=== PATIENT | male | born 1950 | race Caucasian/White ===

== ENCOUNTER 2024-02-04 12:42 | Emergency (ER) | payer OTHER ==
[2024-02-04 12:56] VITALS: BP 124/81; PULSE 95; RESP 17; TEMP 97.7; BMI 27.6
== END 2024-02-04 15:01 | disposition home or self-care (01) ==
LOC: JER 12:42
DX: R21 Rash and other nonspecific skin eruption (principal); B02.9 Zoster without complications
CPT/HCPCS: 99283-25

== ENCOUNTER 2024-02-18 13:01 | Emergency (ER) | payer OTHER ==
[2024-02-18 13:29] VITALS: BP 159/95; PULSE 95; RESP 18; TEMP 97.5; BMI 23.7
[2024-02-18 14:34] LABS: BASO % 0.3 % (0-2.0); EOS % 0.2 % (0-4.5); HEMATOCRIT 47.5 % (35.4-49); HEMOGLOBIN 16.7 GM/dL (11.7-16.9); LYMPH % 24.5 % (8-40); MCH 32.8 pg (25.7-33.7); MCHC 35.1 g/dl (32.0-35.9); MEAN CELL VOLUME 93.4 fl (80-96); MEAN PLT VOLUME 7.9 fl (7.5-11.1); MONO % 7.3 % (3.8-10.2); NEUT % 67.7 % (42.8-82.8); PLATELET COUNT 252 10^3/uL (134-434); RBC 5.09 M/mm3 (4.00-5.60); RDW 13.6 % (11.9-15.9); WHITE BLOOD COUNT 9.2 K/mm3 (4.0-10.0)
[2024-02-18 14:48] LABS: POTASSIUM 3.8 mmol/L (3.5-5.1)
[2024-02-18 14:50] LABS: CALCIUM 9.8 mg/dL (8.5-10.1)
[2024-02-18 14:51] LABS: ALBUMIN 4.4 g/dl (3.4-5.0); BLOOD UREA NITROGEN 19.5 mg/dL (7-18)
[2024-02-18 14:55] LABS: BILIRUBIN,TOTAL 1.1 mg/dL (0.2-1); CREATININE 1.1 mg/dL (0.55-1.3); TOT PROT 7.3 g/dl (6.4-8.2)
== END 2024-02-18 15:24 | disposition home or self-care (01) ==
LOC: JERFT 13:01
DX: M54.2 Cervicalgia (principal); M25.511 Pain in right shoulder; M79.601 Pain in right arm; B02.9 Zoster without complications
CPT/HCPCS: 36415; 80053; 85025; 93005; 93010; 99284-25

== ENCOUNTER 2024-03-14 12:08 | Emergency (ER) | payer OTHER ==
[2024-03-14 12:17] VITALS: BP 164/91; PULSE 95; RESP 16; TEMP 97.5; BMI 25.0
[2024-03-14] MEDS ORDERED: KETOROLAC TROMETHAMINE 15 MG/ML VIAL ONE (13:00)
[2024-03-14] MEDS ORDERED: LIDOCAINE 4% PATCH TP ONE (13:00)
[2024-03-14] MEDS: KETOROLAC TROMETHAMINE 30 MG/1 ML VIAL IVPUSH ONE (13:02)
[2024-03-14] MEDS: LIDOCAINE 5% TOPICAL PATCH TP ONE (13:02)
[2024-03-14] MEDS ORDERED: LIDOCAINE PATCH REMOVAL MC SCH (22:00)
== END 2024-03-14 14:33 | disposition home or self-care (01) ==
LOC: JERFT 12:08
PROC: 3E0333Z Introduction of Anti-inflammatory into Peripheral Vein, Percutaneous Approach (ICD-10-PCS; principal; 2024-03-14)
DX: S49.91XA Unspecified injury of right shoulder and upper arm, initial encounter (principal); W19.XXXA Unspecified fall, initial encounter
CPT/HCPCS: 73030-TC-RT-FY; 96374; 99284-25